=== PATIENT | male | born 1955 | race Caucasian/White ===

== ENCOUNTER 2020-05-05 14:11 | Emergency (ER) | payer BC ==
[2020-05-05] MEDS ORDERED: Diphtheria,Pertussis(Acell),Tetanus Vaccine 0.5 ML SDV IM ONE (15:25)
[2020-05-05] MEDS ORDERED: Bacitracin Oint 1 GM U/D Packet TOP ONE (15:25)
[2020-05-05] MEDS ORDERED: Lidocaine 1% with EPINEPHrine 1:100,000 50 ML MDV SUBCUT STA (15:25)
--- NOTE | 2020-05-05 16:02 | EDM.PDOC ---
ED HPI GENERAL MEDICAL PROBLEM - General Chief Complaint: Head Injury Stated Complaint: GASH ON HEAD Time Seen by Provider: 05/05/20 14:14 Source of Information: Reports: Patient, RN Notes Reviewed History Limitations: Reports: No Limitations - History of Present Illness INITIAL COMMENTS - FREE TEXT/NARRATIVE: 65-year-old gentleman presents emergency department today with a laceration to his scalp he injured himself when he walked into a tree branch that had been cut there was no loss of consciousness complains of no other injury - Related Data Allergies Allergy/AdvReac Type Severity Reaction Status Date / Time ampicillin Allergy Other Verified 05/05/20 15:34 Sulfa (Sulfonamide Allergy Other Verified 05/05/20 15:34 Antibiotics) Home Meds: Home Meds Adalimumab [Humira Pen] 40 mg SQ ASDIRECTED 05/05/20 [History] Docusate Sodium [Colace] 100 mg PO DAILY 05/05/20 [History] buPROPion HCL [Bupropion Xl] 300 mg PO DAILY 05/05/20 [History] Past Medical History Psychiatric History: Reports: Depression Endocrine/Metabolic History: Reports: Diabetes, Type II Social & Family History - Tobacco Use Smoking Status *Q: Never Smoker ED ROS GENERAL - Review of Systems Review Of Systems: See Below Skin: Reports: Wound ED EXAM, HEAD INJURY - Physical Exam Exam: See Below Text/Narrative:: 3 cm wound completely through the dermis top of the scalp Exam Limited By: No Limitations General Appearance: Alert, WD/WN, No Apparent Distress ED LACERATION/WOUND & GIOVANNA PROC - Laceration/Wound Repair Head Lac/wound length in cm: 3 Appearance: Subcutaneous, Irregular Distal NVT: Neuro & Vascular Intact, No Tendon Injury Anesthetic Type: Local Local Anesthesia - Lidocaine (Xylocaine): 1% with EPI Local Anesthetic Volume: 2cc Skin Prep: Saline Saline irrigation (cc's): 50 Exploration/Debridement/Repair: Wound Explored, In a Bloodless Field, Explored to Base Closed with: [place] # of Sutures: 4 Suture Type: Interrupted Sterile Dressing Applied: Nurse Tetanus Status Addressed: Yes Complications: No Course - Vital Signs Last Recorded V/S: Last Vital Signs Temp 95.8 F L 05/05/20 15:21 Pulse 102 H 05/05/20 15:21 Resp 16 05/05/20 15:21 BP 137/92 H 05/05/20 15:21 Pulse Ox 96 05/05/20 15:21 - Orders/Labs/Meds Orders: Active Orders 24 hr Category Date Time Status Vaccines to be Administered [RC] PER UNIT ROUTINE Care 05/05/20 15:25 Active Meds: Medications Discontinued Medications Generic Name Dose Route Start Last Admin Trade Name Nirav PRN Reason Stop Dose Admin Bacitracin 1 dose 05/05/20 15:25 Bacitracin Oint 1 Gm TOP 05/05/20 15:26 ONETIME ONE Diphtheria/Tetanus/Acell Pertussis 0.5 ml 05/05/20 15:25 Adacel IM 05/05/20 15:26 .ONCE ONE Lidocaine/Epinephrine 20 ml 05/05/20 15:25 Xylocaine 1% With Epinephrine 1:100,000 SUBCUT 05/05/20 15:26 NOW STA Departure - Departure Time of Disposition: 16:01 Disposition: Home, Self-Care 01 Condition: Good Clinical Impression: Laceration of head Qualifiers: Encounter type: initial encounter Location of open wound of head: scalp Foreign body presence: without foreign body Qualified Code(s): S01.01XA - Laceration without foreign body of scalp, initial encounter - Discharge Information Instructions: Laceration Care, Adult, [id number] Referrals: PCP,None [Primary Care Provider] - Additional Instructions: Follow-up with primary care or return to the emergency department for staple removal in about 10 days Sepsis Event Note (ED) - Focused Exam Vital Signs: Vital Signs Temp Pulse Resp BP Pulse Ox 05/05/20 15:21 95.8 F L 102 H 16 137/92 H 96 - My Orders Last 24 Hours: My Active Orders 05/05/20 15:25 Vaccines to be Administered [RC] PER UNIT ROUTINE - Assessment/Plan Last 24 Hours: My Active Orders 05/05/20 15:25 Vaccines to be Administered [RC] PER UNIT ROUTINE Plan: Assessment Acuity = acute Site and laterality = scalp laceration Etiology = secondary trauma with a tree branch Manifestations = none Location of injury = Home Lab values = none Plan Follow-up with primary care return to emergency department for staple removal, follow wound care instruction sheet This note was dictated using [employer] voice recognition software please call with any questions on syntax or grammar.
== END 2020-05-05 16:30 | disposition home or self-care (01) ==
LOC: JP.ED 14:11
DX: S01.01XA Laceration without foreign body of scalp, initial encounter (principal); E11.9 Type 2 diabetes mellitus without complications; F32.9 Major depressive disorder, single episode, unspecified; Z23 Encounter for immunization; Z88.1 Allergy status to other antibiotic agents; Z88.2 Allergy status to sulfonamides; Z79.899 Other long term (current) drug therapy; W22.8XXA Striking against or struck by other objects, initial encounter; Y93.01 Activity, walking, marching and hiking
CPT/HCPCS: 12002; 90471; 90715; 99282; 99282-25